=== PATIENT | male | born 1950 | race Caucasian/White ===

== ENCOUNTER 2019-10-03 09:30 | Day surgery (SDC) | payer MEDICARE ==
[~2019-10-03 09:30] MED LIST: ALPRAZolam 0.25 MG TAB PO PRN; ALPRAZolam 0.5 MG TAB PO PRN; ASPIRIN 325 MG TAB PO ONE; ATORVASTATIN 80 MG TAB PO ONE; SODIUM CHLORIDE 0.9% 1,000 ML in EMPTY BAG 1 BAG IV ONE
[2019-10-03 10:11] LABS: Basophils % (A) 1 %; Eosinophils # (A) 0.2 k/uL (0-0.7); Eosinophils % (A) 3 %; HCT 48.8 % (39.0-53.0); HGB 15.6 gm/dL (13.0-17.5); Lymphocytes # (A) 1.5 k/uL (1.0-4.8); Lymphocytes % (A) 25 %; MCH 29.7 pg (25.0-35.0); MCV 92.9 fL (80.0-100.0); Mean Platelet Volume 8.7; Monocytes # (A) 0.5 k/uL (0-1.0); Monocytes % (A) 8 %; Neutrophils # (A) 3.7 k/uL (1.3-7.7); Neutrophils % (A) 62 %; Platelet Count 250 k/uL (150-450); RBC 5.25 m/uL (4.30-5.90); RDW 13.4 % (11.5-15.5)
[2019-10-03 10:28] LABS: African American GFR (CKD) >90 (>60 ml/min/1.73 sqM); Anion Gap 7 mmol/L; Blood Urea Nitrogen 16 mg/dL (9-20); Calcium 9.6 mg/dL (8.4-10.2); Carbon Dioxide 27 mmol/L (22-30); Chloride 106 mmol/L (98-107); Glucose 105 mg/dL (74-99); Non-African American GFR(CKD) 85 (>60 ml/min/1.73 sqM); Potassium 4.6 mmol/L (3.5-5.1); Sodium 140 mmol/L (137-145)
[2019-10-03] MEDS ORDERED: LIDOCAINE 1% INJ 10MG/ML (20 ML MDV) ONE (11:06)
[2019-10-03] MEDS ORDERED: fentaNYL (PF) 50 MCG/ML 2 ML AMP ONE (11:14)
[2019-10-03] MEDS ORDERED: fentaNYL (PF) 50 MCG/ML 2 ML AMP IV ONE (11:22)
[2019-10-03] MEDS ORDERED: MIDAZOLAM 2 MG/2 ML VIAL IV ONE (11:22)
[2019-10-03] MEDS ORDERED: LIDOCAINE 1% INJ 10MG/ML (20 ML MDV) SQ ONE (11:25)
[2019-10-03] MEDS ORDERED: ENALAPRILAT 1.25 MG/ML 1 ML VIAL ONE (11:30)
[2019-10-03] MEDS ORDERED: NITROGLYCERIN OINT 1 INCH/GM PACKET TOPICAL ONE ×2 (11:31→11:34)
[2019-10-03] MEDS ORDERED: ENALAPRILAT 1.25 MG/ML 1 ML VIAL IV ONE (11:34)
[2019-10-03] MEDS ORDERED: CLOPIDOGREL 75 MG TAB ONE (11:50)
[2019-10-03] MEDS ORDERED: BIVALIRUDIN BOLUS 250 MG/50 ML IV ONE (11:51)
[2019-10-03] MEDS ORDERED: CLOPIDOGREL 75 MG TAB PO ONE (11:52)
[2019-10-03] MEDS ORDERED: BIVALIRUDIN 250 MG in SODIUM CHLORIDE 0.9% 50 ML IV ONE (11:52)
[2019-10-03] MEDS ORDERED: NITROGLYCERIN 1000MCG/10ML SYRINGE INTRACORON ONE ×2 (12:00→12:26)
[2019-10-03] MEDS ORDERED: IOPAMIDOL-370 100ML BTL INJ ONE ×3 (12:03→12:38)
[2019-10-03] MEDS ORDERED: ZOLPIDEM 5 MG TAB PO PRN (12:53)
[2019-10-03] MEDS ORDERED: RX INFO: IV CONTRAST WAS GIVEN 1 EACH MISC MISCELLANE PRN (12:53)
[2019-10-03] MEDS ORDERED: MAG HYDROX/AL HYDROX/SIMETH 30 ML CUP PO PRN (12:53)
[2019-10-03] MEDS ORDERED: NITROGLYCERIN SL TABS 0.4 MG TAB SUBLINGUAL PRN (12:53)
[2019-10-03] MEDS ORDERED: ATROPINE SULFATE 0.1 MG/ML 10ML SYRINGE IV PRN (12:53)
[2019-10-03] MEDS ORDERED: SODIUM CHLORIDE 0.9% 1,000 ML IV SCH (13:00)
--- NOTE | 2019-10-03 17:58 | CC ---
CARDIAC CATHETERIZATION REPORT INDICATION: Shortness of breath with an abnormal stress test. PROCEDURE NOTE: After obtaining informed consent, left heart catheterization and coronary angiogram were performed via the right femoral artery using standard Tyler catheters. Patient tolerated the procedure well without any obvious immediate complications. Patient received moderate conscious sedation. Total sedation time was 21 minutes. FINDINGS: HEMODYNAMICS: Left ventricular end-diastolic pressure is 16-18 mm. There is no significant gradient across the aortic valve. LEFT VENTRICULOGRAM: Left ventriculogram was not performed. ANGIOGRAPHIC DATA: LEFT MAIN CORONARY ARTERY: Left main coronary artery is a normal-sized vessel and is free of stenosis. It divides into left anterior descending coronary artery and circumflex coronary artery. LAD appears calcified in its mid portion. There is a focal 70% stenosis noted. Circumflex coronary artery and its branches are free of significant stenosis. RIGHT CORONARY ARTERY: Right coronary artery is a large dominant vessel that shows a 70% to 80% focal stenosis involving the PLV branch. CONCLUSIONS: Two-vessel coronary artery disease as described above. PLAN: I am going to review the angiographic data with Dr. Christianson, the on-call tool clerk, and decide on angioplasty with stent placement. MMODL / IJN: [id number] /
[2019-10-03] MEDS: LISINOPRIL 5 MG TAB PO SCH ×2 (18:01→22:23)
--- NOTE | 2019-10-03 18:08 | LTR ---
October 03, 2019 To: Dr. Humphrey Re: Arnaud Carrasco (50) Dear Lex, I performed cardiac catheterization on Arnaud Carrasco. Detailed catheterization note is enclosed for your records. In brief, cardiac catheterization revealed significant two-vessel coronary artery disease, and we will consider angioplasty today. Thank you for giving me the privilege to participate in the care of this pleasant gentleman. Sincerely, Flip Shanks M.D. [place] / REJI: [id number] /
--- NOTE | 2019-10-03 19:43 | PTCA ---
PERCUTANEOUSTRANS CORORONARY ANGIOGRAPHY Mr. Carrasco is a 69-year-old male with a known history of hypertension and hyperlipidemia who has been complaining of dyspnea on exertion. He had an abnormal stress test, was evaluated by Dr. Shanks and underwent cardiac catheterization. He was found to have heavily calcified coronary arteries with significant disease involving the mid LAD and the right PLV. In view of that, recommendation was made regarding angioplasty and stenting. The procedure, its risks and complications were discussed with the patient, who was in full understanding and agreement. PROCEDURE DESCRIPTION: A 6-[place] FR4 guiding catheter was introduced into the system. After cannulating the left main, a 0.014 balanced medium weight J-wire was advanced across the lesion and positioned distally. Then a 2.5 x 15 mm Xience Maura stent was deployed and post- dilated at 16 atmospheres. Following that the balloon was removed and a 2.75 x 12 mm NC Trek balloon was advanced and one inflation at 16 atmospheres was done. After the last inflation, after appropriate wait, the balloon and the guidewire were withdrawn back into the guiding catheter. Images were obtained and repeated. Those images reveal stable successful stenting. At that point, a 6-[place] FR4 guiding catheter was introduced into the system. After cannulating the right coronary ostium, the 0.014 balanced medium weight J-wire was advanced and positioned in the distal right PLV. Then a 2.0 x 12 mm Trek balloon was advanced and multiple inflations to a maximum of 10 atmospheres were done. Following that the balloon was removed, and a 2.0 x 18 mm Resolute Darinel stent was deployed, post-dilated at 16 atmospheres. After the last inflation, after appropriate wait, the balloon and the guidewire were withdrawn back into the guiding catheter. Images were obtained and repeated. Those images revealed stable successful stenting. At that point the guiding catheter, the balloon and the guidewire were removed. The sheath was removed. Hemostasis was obtained with deployment of Angio-Seal. There was no immediate complication. Patient was returned to his room in stable condition. RESULTS: 1. Successful stenting of the mid right coronary artery in a heavily calcified segment with reduction of stenosis from 85% to less than 5%. 2. Successful stenting of the right PLV with reduction of stenosis from 95% to 0%. RECOMMENDATIONS: Patient will be continued on aspirin, Plavix, beta kalpana, BERTHA inhibitor and statin. The importance of dual antiplatelet treatment was discussed with the patient and his family, and they are in full understanding and agreement. Duration of procedure was 40 minutes. [place] / REJI: [id number] /
[2019-10-03 21:00] VITALS: RESP 16
[2019-10-03] MEDS ORDERED: ATORVASTATIN 80 MG TAB PO SCH (21:00)
[2019-10-04 04:23] VITALS: PULSE 56
[2019-10-04 07:50] LABS: African American GFR (CKD) >90 (>60 ml/min/1.73 sqM); Anion Gap 6 mmol/L; Blood Urea Nitrogen 15 mg/dL (9-20); Calcium 8.9 mg/dL (8.4-10.2); Carbon Dioxide 26 mmol/L (22-30); Chloride 106 mmol/L (98-107); Glucose 93 mg/dL (74-99); Non-African American GFR(CKD) 80 (>60 ml/min/1.73 sqM); Potassium 4.6 mmol/L (3.5-5.1); Sodium 138 mmol/L (137-145)
[2019-10-04] MEDS ORDERED: CLOPIDOGREL 75 MG TAB PO SCH (09:00)
[2019-10-04] MEDS ORDERED: CHOLECALCIFEROL 1,000 UNIT TAB PO SCH (09:00)
[2019-10-04] MEDS ORDERED: BISOPROLOL-HCTZ 10-6.25 MG 1 EACH TAB PO SCH (09:00)
[2019-10-04] MEDS ORDERED: ASPIRIN 81 MG PO SCH (09:00)
[2019-10-04 09:47] VITALS: BP 143/69; TEMP 98.6
[2019-10-04] MEDS: LISINOPRIL 5 MG TAB PO SCH (09:48)
--- NOTE | 2019-10-04 09:55 | P.PN ---
Subjective Progress Note Date: 10/04/19 Discharge note This is a 69-year-old gentleman with history of hypertension, hyperlipidemia, who had been complaining of shortness of breath on exertion, he had an abnormal stress test and underwent a cardiac catheterization by Dr. Shanks. Subsequently patient underwent angioplasty and stenting of the RCA and PLV by Dr. Christianson yesterday. Blood pressure 140/60 with a heart rate in the 50s, 94% on room air. White blood cell count 6.0, hemoglobin 15.6, platelet count 250. Sodium 138, potassium 4.6, BUN 15, creatinine 0.9. EKG from this morning shows a normal sinus rhythm with no changes from post-PCI. Patient was seen and examined this morning, overall feeling well, denies any chest pain and breathing is stable. Objective - Vital Signs Vital signs: Vital Signs Temp 99.6 F 10/04/19 04:00 Pulse 56 L 10/04/19 04:00 Resp 16 10/04/19 04:00 BP 118/49 10/04/19 04:00 Pulse Ox 94 L 10/04/19 04:00 Intake & Output 10/03/19 10/04/19 10/04/19 18:59 06:59 18:59 Intake Total 611 240 Output Total 400 Balance 211 240 Weight 111.13 kg 111.4 kg Intake: IV 375 Oral 236 240 Output: Urine 400 Other: Voiding Method Toilet Toilet # Voids 1 - Exam PHYSICAL EXAMINATION: GENERAL: 69-year-old gentleman in no acute distress at the time of my examination HEENT: Head is atraumatic, normocephalic. Pupils equal, round. Sclera anicteric. Conjunctiva are clear. Mucous membranes of the mouth are moist. Neck is supple. There is no elevated jugular venous pressure. No carotid bruit is heard. HEART EXAMINATION: Heart S1, S2 normal. No murmur or gallop heard. CHEST EXAMINATION: Lungs are clear to auscultation and precussion. No chest wall tenderness is noted on palpation or with deep breathing. ABDOMEN: Soft, nontender. Bowel sounds are heard. No organomegaly noted. EXTREMITIES: 2+ peripheral pulses with no evidence of peripheral edema and no calf tenderness noted. Right groin soft, no evidence of any hematoma. NEUROLOGIC patient is awake, alert and oriented 3 . . - Labs CBC & Chem 7: 10/03/19 09:50 10/04/19 06:12 Labs: Abnormal Lab Results - Last 24 Hours (Table) 10/03/19 Range/Units 09:50 Glucose 105 H (74-99) mg/dL Assessment and Plan Plan: Assessment and plan #1 status post angioplasty and stenting of the RCA and PLV #2 hyperlipidemia #3 hypertension Plan Patient may be discharged home today. Follow-up appointment with Dr. Shanks in the office in one week. Discharge medications include aspirin 81 mg daily, Lipitor 80 mg daily, this a prolonged hydrochlorothiazide 10/6.25 mg daily, Plavix 75 mg daily, Zestril 5 mg one tablet by mouth twice a day, sublingual nitroglycerin as needed for chest pain. DNP note has been reviewed, I agree with a documented findings and plan of care. Patient was seen and examined.
[2019-10-04 10:24] VITALS: BMI 39.6
== END 2019-10-04 11:55 | disposition home or self-care (01) ==
LOC: CATHCVL 09:30 → 3SCARD 12:33 → CATHCVL 10-04 11:55
PROVIDERS: ATTEND Internal Medicine Cardiovascular Disease
DX: I25.10 Atherosclerotic heart disease of native coronary artery without angina pectoris (principal); I10 Essential (primary) hypertension; E78.5 Hyperlipidemia, unspecified; Z82.49 Family history of ischemic heart disease and other diseases of the circulatory system; Z79.82 Long term (current) use of aspirin; Z79.899 Other long term (current) drug therapy; Z87.891 Personal history of nicotine dependence
CPT/HCPCS: 93458; 80048 ×2; 85025; C9600; C9601; C1769 ×3; C1760; C1887 ×2; C1725 ×2; C1894; C1874 ×2; J2250; J2001; J3010; J0583; Q9967

== ENCOUNTER → 2019-12-18 | Outpatient (CLI) | payer MEDICARE ==
[2019-12-18 19:56] LABS: Chol/HDL Ratio 2.64; LDL Cholesterol,Calculated 52.2 mg/dL (0.0-131.0); VLDL Calculation 21.8 mg/dL (5.00-40.00)
== END | disposition home or self-care (01) ==
LOC: LABWHC1 11:13
PROVIDERS: ATTEND Internal Medicine Cardiovascular Disease
DX: E78.2 Mixed hyperlipidemia (principal)
CPT/HCPCS: 36415; 80061; 84450; 84460

== ENCOUNTER → 2020-12-08 | Outpatient (CLI) | payer MEDICARE ==
[2020-12-08 16:38] LABS: Chol/HDL Ratio 2.89
== END | disposition home or self-care (01) ==
LOC: LABWHC1 10:11
PROVIDERS: ATTEND Internal Medicine Cardiovascular Disease
DX: E78.2 Mixed hyperlipidemia (principal)
CPT/HCPCS: 36415; 80061; 84450; 84460